=== PATIENT | female | born 1950 | race Caucasian/White ===

== ENCOUNTER 2018-02-12 11:18 | Outpatient (CLI) | payer MEDICARE | END 2018-02-12 11:19 | disposition home or self-care (01) | LOC: BICMAMMO 11:18 | PROVIDERS: ATTEND Orthopaedic Surgery Sports Medicine | DX: Z12.31 Encounter for screening mammogram for malignant neoplasm of breast (principal) | CPT/HCPCS: 77063; 77067 ==

== ENCOUNTER 2018-08-30 02:29 | Emergency (ER) | payer MEDICARE ==
[2018-08-30 03:28] LABS: #Eosinphils 0.1 thou/uL (0.0-0.7); #Lymphocytes 1.5 thou/uL (1.20-3.40); #Monocytes 0.5 thou/uL (0.11-0.59); #Neutrophils 5.8 thou/uL (1.40-6.50); %Basophils 0.3 % (0.0-1.0); %Eosinophils 1.6 % (0.0-10.0); %Lymphocytes 18.8 % (21.0-51.0); %Monocytes 6.8 % (0.0-10.0); %Neutrophils 72.5 % (42.0-75.0); Hemoglobin 14.5 g/dL (12.0-16.0); Mean Corpuscular HGB CONC 33.3 g/dL (32.0-36.0); Mean Corpuscular Hemoglobin 31.2 pg (27.0-31.0); Mean Corpuscular Volume 93.7 fL (78.0-98.0); Mean Platelet Volume 8.2 fL (7.4-10.4); Platelet Count 223 thou/uL (130-400); RBC Distribution Width 12.6 % (11.5-14.5); Red Blood Cell (RBC) Count 4.65 mill/uL (4.20-5.40)
[2018-08-30 03:50] LABS: ALT (SGPT) 19 U/L (8-55); AST (SGOT) 22 U/L (5-34); Albumin 4.3 g/dL (3.4-4.8); Alkaline Phosphatase 91 U/L (40-150); Anion Gap 16 mmol/L (10-20); BUN (Urea Nitrogen) 12 mg/dL (9.8-20.1); Bilirubin, Total 0.7 mg/dL (0.2-1.2); Calc. Creatinine Clearance 0 mL/min (70-130); Calcium 9.7 mg/dL (7.8-10.44); Carbon Dioxide 23 mmol/L (23-31); Chloride 101 mmol/L (98-107); Estimated GFR-MDRD 47; Globulin 3.4 g/dL (2.4-3.5); Glucose 154 mg/dL (80-115); Potassium 3.9 mmol/L (3.5-5.1); Protein, Total 7.7 g/dL (6.0-8.3); Sodium 136 mmol/L (136-145)
--- NOTE | 2018-08-30 07:27 | CT ---
CT ABDOMEN AND PELVIS WITH IV CONTRAST: Date: 08/30/18 INDICATION: History of abdominal pain with associated changes in bowel habits. The patient has been having consti pation but has been using qded-[id number] laxatives and stool softeners. Patient has a history of pr ior appendectomy. FINDINGS: There is bibasilar atelectasis. The liver, pancreas, adrenal glands, and kidneys appear within normal limits. Spleen is normal appear ing. No free fluid or enlarged lymph nodes are evident. There are vascular calcifications involving the abdominal aorta. Small amount of layered fluid is seen within the transverse colon. Scattered degenerative and osteoarthritic change. IMPRESSION: 1. Mild layered fluid within the colon can be seen with diarrheal state. This could also be seen wit h mild colitis. No overt wall thickening or pericolonic inflammatory stranding is evident. 2. Other chronic findings as above. POS: BH
--- NOTE | 2018-08-30 07:47 | RAD ---
ABDOMEN 1 VIEW: Date: 08/30/18 HISTORY: Hernia. Constipation. COMPARISON: None. FINDINGS: There is a mildly distended loop of sigmoid colon in the upper abdomen. Evaluation for free air is li mited without an upright examination. Mildly distended air-filled loops of small bowel throughout the abdomen. Low grade levoscoliosis lumbar spine. IMPRESSION: Findings compatible with ileus. POS: HOME
[2018-08-30] MEDS ORDERED: Iopamidol 370 76% 100 ML VIAL ONE (14:25)
== END 2018-08-30 06:04 | disposition home or self-care (01) ==
LOC: ERS 02:29
DX: K52.9 Noninfective gastroenteritis and colitis, unspecified (principal); I10 Essential (primary) hypertension; E11.9 Type 2 diabetes mellitus without complications; Z79.84 Long term (current) use of oral hypoglycemic drugs; Z79.899 Other long term (current) drug therapy
CPT/HCPCS: 36415; 74018; 74177; 80053; 85025; 96360; 96361; Q9967

== ENCOUNTER 2020-01-24 10:25 | Outpatient (CLI) | payer MEDICARE ==
--- NOTE | 2020-01-24 11:57 | BD ---
DEXA BONE DENSITOMETRY: (Dual energy x-ray absorptiometry) DATE: 01/24/2020 HISTORY: 69-year old white female for age-related, post-menopausal, osteoporosis screening. Weight: 208 lbs Height: 64 in. Age of menopause: 50 COMPARISON: None available. FINDINGS: The bone mineral density (BMD) is given in grams per square centimeter (g/cm2): LUMBAR SPINE: BMD (g/cm^2) T score Z score L1: 0.763 -2.1 -0.2 L2: 0.815 -1.9 0.2 L3: 0.825 -2.4 -0.1 L4: 0.763 -2.7 -0.4 Total: 0.790 -2.3 -0.2 HIP: BMD (g/cm^2) T score Z score Femoral neck: 0.553 -2.7 -0.8 Total: 0.736 -1.7 -0.1 IMPRESSION: 1.) The mean bone mineral density of the lumbar spine is osteopenic. Fracture risk is increased. 2) The bone mineral density of the femoral neck is osteoporotic. Fracture risk is high.
--- NOTE | 2020-01-24 12:12 | MMO ---
Bilateral MAMMO Bilat Screen [facility]. CLINICAL HISTORY: Patient is 69 years old and is seen for screening. The patient has no family history of breast cancer. The patient has no personal history of cancer. VIEWS: The views performed were: bilateral craniocaudal with tomosynthesis and bilateral mediolateral oblique with tomosynthesis. FILMS COMPARED: The present examination has been compared to prior imaging studies performed at [facility] [place] [facility] on 02/12/2018, at [facility] on 05/17/2016, and at [facility] on 07/16/2014. This study has been interpreted with the assistance of computer-aided detection. MAMMOGRAM FINDINGS: There are scattered fibroglandular densities. There are stable benign appearing calcifications seen in both breasts. There are no suspicious masses, suspicious calcifications, or new areas of architectural distortion. IMPRESSION: THERE IS NO MAMMOGRAPHIC EVIDENCE OF MALIGNANCY. A ROUTINE FOLLOW-UP MAMMOGRAM IN 1 YEAR IS RECOMMENDED. THE RESULTS OF THIS EXAM WERE SENT TO THE PATIENT. ACR BI-RADS Category 2 - Benign finding MAMMOGRAPHY NOTE: 1. A negative mammogram report should not delay a biopsy if a dominant of clinically suspicious mass is present. 2. Approximately 10% to 15% of breast cancers are not detected by mammography. 3. Adenosis and dense breasts may obscure an underlying neoplasm. Reported by: ALCON PEDERSON MD Electonically Signed: [id number]
== END 2020-01-24 10:26 | disposition home or self-care (01) ==
LOC: BICMAMMO 10:25
PROVIDERS: ATTEND Registered Nurse
DX: Z12.31 Encounter for screening mammogram for malignant neoplasm of breast (principal); Z13.820 Encounter for screening for osteoporosis; M81.0 Age-related osteoporosis without current pathological fracture; M85.88 Other specified disorders of bone density and structure, other site; Z78.0 Asymptomatic menopausal state
CPT/HCPCS: 77063; 77067; 77080

== ENCOUNTER 2021-03-01 10:44 | Outpatient (CLI) | payer MEDICARE | END 2021-03-01 10:45 | disposition home or self-care (01) | LOC: DTY/OP 10:44 | PROVIDERS: ATTEND Registered Nurse | DX: E11.22 Type 2 diabetes mellitus with diabetic chronic kidney disease (principal); N18.9 Chronic kidney disease, unspecified; E78.2 Mixed hyperlipidemia | CPT/HCPCS: 97802 ==

== ENCOUNTER 2021-04-14 09:31 | Outpatient (CLI) | payer MEDICARE | END 2021-04-14 09:32 | disposition home or self-care (01) | LOC: BICMAMMO 09:31 | PROVIDERS: ATTEND Registered Nurse | DX: Z12.31 Encounter for screening mammogram for malignant neoplasm of breast (principal) | CPT/HCPCS: 77063; 77067 ==

== ENCOUNTER 2022-01-11 06:50 | Day surgery (SDC) | payer MEDICARE ==
[2022-01-10 10:55] VITALS: BMI 36.7
[~2022-01-11 06:50] MED LIST: EPINEPHrine 0.3 MG in Ophthalmic Irrigation Solution 500 ML IRR SCH; Midazolam HCl 2 mg/2 ml Vial ONE; fentaNYL Citrate/PF 100 MCG/2 ML SYRINGE ONE
[2022-01-11] MEDS ORDERED: Phenylephrine 2.5% Ophth Soln 5 ML BOT ONE (07:15)
[2022-01-11] MEDS ORDERED: Cyclopentolate 1% Opth Drop 2 ML BOT ONE (07:15)
[2022-01-11] MEDS ORDERED: PROPOFOL 200 MG/20 ML VIAL ONE (08:15)
[2022-01-11] MEDS ORDERED: Lidocaine 4% PF 5 ML AMP ONE (08:15)
[2022-01-11] MEDS ORDERED: Maxitrol 0.1% Opth Oint 3.5 GM TUBE ONE (08:15)
[2022-01-11] MEDS ORDERED: CEFAZOLIN 1 GM VIAL ONE (08:15)
[2022-01-11] MEDS ORDERED: Triamcinolone 40 MG/ML VIAL ONE (08:15)
[2022-01-11] MEDS ORDERED: Bupivacaine 0.75% 10 ML VIAL ONE (08:15)
[2022-01-11] MEDS ORDERED: Lidocaine 1% PF 5 ML VIAL ONE (08:15)
== END 2022-01-11 09:25 | disposition home or self-care (01) ==
LOC: SDC 06:50
PROVIDERS: ATTEND Ophthalmology Retina Specialist
PROC: 08T43ZZ Resection of Right Vitreous, Percutaneous Approach (ICD-10-PCS; principal; 2022-01-11)
PROC: 08DJ3ZZ Extraction of Right Lens, Percutaneous Approach (ICD-10-PCS; 2022-01-11)
DX: H59.021 Cataract (lens) fragments in eye following cataract surgery, right eye (principal); H43.391 Other vitreous opacities, right eye; Z79.84 Long term (current) use of oral hypoglycemic drugs; Z79.899 Other long term (current) drug therapy
CPT/HCPCS: J0171; J0690; J2250; J2704; J3301; J3490

== ENCOUNTER 2022-06-23 13:24 | Outpatient (CLI) | payer MEDICARE | END 2022-06-23 13:25 | disposition home or self-care (01) | LOC: BICMAMMO 13:24 | PROVIDERS: ATTEND Registered Nurse | DX: Z12.31 Encounter for screening mammogram for malignant neoplasm of breast (principal); Z13.820 Encounter for screening for osteoporosis; M81.0 Age-related osteoporosis without current pathological fracture; Z78.0 Asymptomatic menopausal state | CPT/HCPCS: 77063; 77067; 77080 ==

== ENCOUNTER 2023-08-03 10:59 | Outpatient (CLI) | payer MEDICARE | END 2023-08-03 11:00 | disposition home or self-care (01) | LOC: BICMAMMO 10:59 | PROVIDERS: ATTEND Registered Nurse | DX: Z12.31 Encounter for screening mammogram for malignant neoplasm of breast (principal); M81.0 Age-related osteoporosis without current pathological fracture; Z78.0 Asymptomatic menopausal state; M85.89 Other specified disorders of bone density and structure, multiple sites; Z79.83 Long term (current) use of bisphosphonates | CPT/HCPCS: 77063; 77067; 77080 ==